=== PATIENT | male | born 1990 | race Caucasian/White ===

== ENCOUNTER → 2016-09-09 | Outpatient (CLI) | payer SELFPAY ==
[2016-09-09 13:37] LABS: PROLACTIN 121.5 NG/ML (2.1-17.7)
[2016-09-09 13:38] LABS: ESTRADIOL 22.2 PG/ML (<39.8); FOLLICLE STIMULATING HORMONE 2.9 mIU/mL (1.4-18.1); LUTEINIZING HORMONE 2.2 mIU/mL (1.5-9.3)
[2016-09-11 00:07] LABS: SEX HORMONE BINDING GLOBULIN 32.9 nmol/L (16.5-55.9)
== END ==
LOC: M SMT 10:02
PROVIDERS: ATTEND Nurse Practitioner Women's Health
DX: R53.83 Other fatigue (principal); E29.1 Testicular hypofunction

== ENCOUNTER → 2016-10-28 | Outpatient (CLI) | payer SELFPAY ==
--- NOTE | 2016-10-28 12:06 | REP ---
MRI BRAIN WITHOUT AND WITH CONTRAST: HISTORY: Hyperprolactinemia. CONTRAST: ProHance 8 mL. COMPARISON: 05/27/2009. There are no areas of abnormal signal intensity in the brain parenchyma. There is no intraparenchymal hemorrhage, infarct, mass or midline shift. There is no abnormal enhancement. The ventricular system is normal in appearance. There is no extracerebral collection. A 2.4 mm focus of decreased signal intensity is present in the right side of the pituitary gland. This is seen only in contrast enhanced images. The pituitary gland is normal in size measuring 7.2 mm in height. The infundibulum is midline. The cavernous sinuses, optic chiasm and hypothalamus are normal in appearance. Mucosal thickening is present in the maxillary sinuses. IMPRESSION: There is a 2.4 mm focus of decreased signal intensity in the pituitary gland. This is suspicious for a small microadenoma. Signed by Chuy Calero MD 10/28/2016 12:07 P
== END ==
LOC: M RAD 09:14
PROVIDERS: ATTEND Urology
DX: E22.1 Hyperprolactinemia (principal)

== ENCOUNTER → 2016-12-21 | Outpatient (REF) | payer SELFPAY ==
[2016-12-21 12:58] LABS: PROLACTIN 8.7 NG/ML (2.1-17.7)
== END ==
LOC: M LABDRAW1 11:34
PROVIDERS: ATTEND Physician Assistant Medical
DX: E22.1 Hyperprolactinemia (principal); E22.9 Hyperfunction of pituitary gland, unspecified

== ENCOUNTER 2021-04-08 15:06 | Emergency (ER) | payer SELFPAY ==
[~2021-04-08] VITALS: Ht 177.8 cm; Wt 86.4 kg
[2021-04-08] MEDS ORDERED: NS 1,000 ML IV ONE (15:45)
[2021-04-08] MEDS ORDERED: LORazepam 2 MG/ML VIAL IV STA (15:45)
--- NOTE | 2021-04-08 16:02 | REP ---
INDICATION: CHEST PAIN. COMPARISON: None. TECHNIQUE: Single portable AP view of the chest was performed. FINDINGS: There is no acute infiltrate or pulmonary edema. Lungs are clear. The heart is not significantly enlarged. The mediastinal silhouette is unremarkable. The visualized osseous structures are intact. IMPRESSION: No acute pulmonary disease. <Electronically signed by Braydon Jose > 04/08/21 [id number]
[2021-04-08 16:19] LABS: BASO # 0.1 10^3/uL (0.0-0.2); BASO % 0.8 % (0.0-1.0); EOS # 0.1 10^3/uL (0.0-0.5); EOS % 1.5 % (0.0-3.0); HEMATOCRIT 51.3 % (42.0-52.0); HEMOGLOBIN 17.6 g/dl (13.5-17.5); LYMPH # 1.8 10^3/uL (1.5-5.0); LYMPH % 19.8 % (24.0-44.0); MEAN CORPUSCULAR HEMOGLOBIN 27.4 pg (27.0-33.0); MEAN CORPUSCULAR HGB CONC 34.3 g/dl (32.0-36.5); MEAN CORPUSCULAR VOLUME 79.9 fl (80.0-96.0); MONO # 0.9 10^3/uL (0.0-0.8); MONO % 10.1 % (2.0-8.0); NEUTROPHILS # 6.2 10^3/uL (1.5-8.5); NEUTROPHILS % 67.3 % (36.0-66.0); PLATELET COUNT, AUTOMATED 270 10^3/uL (150-450); RED BLOOD COUNT 6.42 10^6/uL (4.30-6.10); WHITE BLOOD COUNT 9.2 10^3/uL (4.0-10.0)
[2021-04-08 16:58] LABS: ALBUMIN 4.2 GM/DL (3.2-5.2); ALT/SGPT 63 U/L (12-78); BILIRUBIN,DIRECT < 0.1 MG/DL (0.0-0.2); BILIRUBIN,TOTAL 0.5 MG/DL (0.2-1.0); BLOOD UREA NITROGEN 16 MG/DL (7-18); CALCIUM LEVEL 9.6 MG/DL (8.5-10.1); CARBON DIOXIDE LEVEL 31 MEQ/L (21-32); CHLORIDE LEVEL 101 MEQ/L (98-107); CPK CREATINE PHOSPHOKINASE 1449 U/L (39-308); CREATININE FOR GFR 1.09 MG/DL (0.70-1.30); GLOMERULAR FILTRATION RATE > 60.0 (>60); GLUCOSE, FASTING 99 MG/DL (70-100); LIPASE 86 U/L (73-393); MB/CK RELATIVE INDEX 0.14 (< OR =4); NT-PRO BNP < 5 PG/ML (<125); POTASSIUM SERUM 4.9 MEQ/L (3.5-5.1); SODIUM LEVEL 139 MEQ/L (136-145); TOTAL PROTEIN 7.5 GM/DL (6.4-8.2); TROPONIN I < 0.02 NG/ML (< 0.10)
[2021-04-08 19:15] VITALS: BP 149/73
--- NOTE | 2021-04-08 22:02 | ECGEPIP ---
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
[2021-04-09] MEDS ORDERED: UNRESOLVED CLARIFICATION ENTRY XX SCH (00:01)
== END 2021-04-08 19:15 | disposition home or self-care (01) ==
LOC: EDBD 15:06 → M ED 15:06
DX: F41.8 Other specified anxiety disorders (principal); F12.20 Cannabis dependence, uncomplicated
CPT/HCPCS: 71045; 80048; 80076; 82550; 82553; 83690; 83880; 84443; 84484; 85025; 93005; 93041; 94760; 96361; 96374; 99285; J2060

== ENCOUNTER → 2023-10-01 | Outpatient (REF) | payer BC ==
[2023-10-02 11:11] LABS: TESTOSTERONE FREE (DIRECT) 8.4 pg/mL (8.7-25.1)
== END ==
LOC: M LAB REF 12:26
PROVIDERS: ATTEND Physician Assistant Medical
DX: R68.82 Decreased libido (principal)

== ENCOUNTER → 2023-10-18 | Outpatient (REF) | payer BC | LOC: M LAB REF 12:41 | PROVIDERS: ATTEND Physician Assistant Medical | DX: R68.82 Decreased libido (principal) ==

== ENCOUNTER → 2023-10-28 | Outpatient (REF) | payer BC ==
[2023-10-28 10:57] LABS: SEMEN APPEARANCE OPAQUE (OPAQUE); SEMEN VISCOSITY LIQUID (LIQUID); SEMEN VOLUME 2.2 ml (2.0-5.0); SPERM CONCENTRATION 8.7 M/ml (>=15.0); WBC CONCENTRATION <=1 M/ml (<=1 M/ml)
== END ==
LOC: M LAB REF 09:46
PROVIDERS: ATTEND Physician Assistant Medical
DX: R68.82 Decreased libido (principal); Z31.41 Encounter for fertility testing

== ENCOUNTER → 2023-10-29 | Outpatient (REF) | payer BC ==
[2023-10-29 14:27] LABS: CORTISOL BASELINE 7.8 UG/DL (4.3-22.4)
[2023-10-29 14:32] LABS: ESTRADIOL 32.9 PG/ML (<39.8)
== END ==
LOC: M LAB REF 13:18
PROVIDERS: ATTEND Physician Assistant Medical
DX: E29.1 Testicular hypofunction (principal)

== ENCOUNTER → 2023-11-18 | Outpatient (CLI) | payer BC | LOC: M PLARAD 10:06 | PROVIDERS: ATTEND Physician Assistant Medical | DX: R51.9 Headache, unspecified (principal); D44.3 Neoplasm of uncertain behavior of pituitary gland; E23.6 Other disorders of pituitary gland ==

== ENCOUNTER → 2023-11-23 | Outpatient (REF) | payer BC | LOC: M LAB REF 12:27 | PROVIDERS: ATTEND Physician Assistant Medical | DX: E22.1 Hyperprolactinemia (principal) ==

== ENCOUNTER → 2024-01-28 | Outpatient (REF) | payer BC ==
[2024-01-28 14:48] LABS: PROLACTIN 86.6 NG/ML (2.1-17.7)
== END ==
LOC: M LAB REF 12:50
PROVIDERS: ATTEND Physician Assistant Medical
DX: E22.1 Hyperprolactinemia (principal)

== ENCOUNTER → 2024-03-31 | Outpatient (REF) | payer BC | LOC: M LAB REF 12:26 | PROVIDERS: ATTEND Physician Assistant Medical | DX: E22.1 Hyperprolactinemia (principal) ==

== ENCOUNTER → 2024-04-05 | Outpatient (REF) | payer BC ==
[2024-04-05 14:02] LABS: FOLLICLE STIMULATING HORMONE < 0.3 mIU/ML (1.4-18.1); LUTEINIZING HORMONE < 0.1 mIU/ML (1.5-9.3)
[2024-04-05 14:03] LABS: TESTOSTERONE 654 NG/DL (241-827)
== END ==
LOC: M LAB REF 13:15
PROVIDERS: ATTEND Physician Assistant Medical
DX: E22.1 Hyperprolactinemia (principal)

== ENCOUNTER → 2024-05-25 | Outpatient (REF) | payer BC ==
[2024-05-25 13:46] LABS: FOLLICLE STIMULATING HORMONE 1.2 mIU/ML (1.4-18.1)
[2024-05-25 13:47] LABS: LUTEINIZING HORMONE < 0.1 mIU/ML (1.5-9.3); PROLACTIN 75.54 NG/ML (2.1-17.7); TESTOSTERONE 1447 NG/DL (241-827)
== END ==
LOC: M LAB REF 12:14
PROVIDERS: ATTEND Physician Assistant Medical
DX: E22.1 Hyperprolactinemia (principal); E29.1 Testicular hypofunction

== ENCOUNTER → 2024-10-11 | Outpatient (REF) | payer BC ==
[2024-10-11 09:48] LABS: SEMEN APPEARANCE OPAQUE (OPAQUE); SEMEN VISCOSITY LIQUID (LIQUID); SEMEN VOLUME 3.5 ml (2.0-5.0); WBC CONCENTRATION <=1 M/ml (<=1 M/ml)
[2024-10-11 09:49] LABS: SPERM CONCENTRATION 9.7 M/ml (>=15.0); TOTAL PROGRESSIVE SPERM 3.2 M/Ejac.
== END ==
LOC: M LAB REF 09:39
PROVIDERS: ATTEND Physician Assistant Medical
DX: E29.1 Testicular hypofunction (principal); R68.82 Decreased libido

== ENCOUNTER → 2024-11-30 | Outpatient (CLI) | payer BC, SELFPAY ==
[~2024-11-30] MED LIST: PROHANCE 279.3MG/ML 5ML VIAL As Ordered ONE
== END ==
LOC: M RAD 12:07
PROVIDERS: ATTEND Internal Medicine Endocrinology, Diabetes & Metabolism
DX: E22.1 Hyperprolactinemia (principal)
CPT/HCPCS: 70553; A9576

== ENCOUNTER → 2024-12-05 | Outpatient (REF) | payer BC ==
[2024-12-05 15:19] LABS: FOLLICLE STIMULATING HORMONE < 0.3 mIU/ML (1.4-18.1); LUTEINIZING HORMONE < 0.1 mIU/ML (1.5-9.3)
[2024-12-05 15:20] LABS: PROLACTIN 52.45 NG/ML (2.1-17.7)
== END ==
LOC: M LAB REF 14:11
PROVIDERS: ATTEND Physician Assistant Medical
DX: E29.1 Testicular hypofunction (principal); E22.1 Hyperprolactinemia